=== PATIENT | male | born 1995 ===

== ENCOUNTER 2018-06-11 10:05 | Observation (INO) | payer BC, OTHER ==
[2018-06-11] MEDS ORDERED: Ketorolac 30 MG/ML SDV IVPUSH ONE (10:49)
[2018-06-11] MEDS ORDERED: Sodium Chloride 0.9% 1,000 ML IV ONE (10:49)
[2018-06-11] MEDS ORDERED: Ondansetron 4 MG/2 ML SDV IVPUSH ONE (10:49)
--- NOTE | 2018-06-11 10:58 | EDM.PDOC ---
ED HPI GENERAL MEDICAL PROBLEM - General Chief Complaint: Abdominal Pain Stated Complaint: ABD PAIN Time Seen by Provider: 06/11/18 10:52 Source of Information: Reports: Patient History Limitations: Reports: No Limitations - History of Present Illness INITIAL COMMENTS - FREE TEXT/NARRATIVE: HISTORY AND PHYSICAL: History of present illness: Patient is a 23-year-old male who presents to the ED today with left upper and right upper abdominal pain. Patient states that starting last night he started to feel the pain but went to bed not thinking twice about it. He states he woke up in the middle of the night with 7 out of 10 abdominal pain. He describes it as crampy and comes and goes. He states that currently it is a 9 out of 10. He states he's had a few episodes of vomiting and feels nauseous. He states he feels "bloated". He states he's been having issues with not having a bowel movement over the past week and feels as if he cannot have a bowel movement. He states he has been able to pass gas. He denies any blood in the stool. He denies any difficulties urinating or burning with urination. Denies any testicular pain or swelling, shortness of breath or difficulties breathing, fever, chills, chest pain, palpitations, or older GI, , respiratory , or cardiovascular concerns. Patient does have a history of anxiety and depression but denies any other health history. He denies any surgeries. Review of systems: As per history of present illness and below otherwise all systems reviewed and negative. Past medical history: As per history of present illness and as reviewed below otherwise noncontributory. Surgical history: As per history of present illness and as reviewed below otherwise noncontributory. Social history: No reported history of drug or alcohol abuse. Family history: As per history of present illness and as reviewed below otherwise noncontributory. Physical exam: General: Patient sitting comfortably in no acute distress and nontoxic appearing. He did have one episode of emesis throughout the exam. HEENT: Atraumatic, normocephalic, pupils reactive, negative for conjunctival pallor or scleral icterus, mucous membranes moist, throat clear, neck supple, nontender, trachea midline. No meningeal signs. Lungs: Clear to auscultation, breath sounds equal bilaterally, chest nontender. Heart: S1S2, regular, negative for clicks, rubs, or overt murmur. Abdomen: Moderate pain to palpation of the right upper and left upper quadrants. Positive bowel sounds in all quadrants. Otherwise, soft, nondistended. Negative for masses or hepatosplenomegaly. Negative for costovertebral tenderness. No rigidity, rebound, guarding. Pelvis: Stable nontender. Genitourinary: Deferred. Rectal: Deferred. Extremities: Atraumatic, negative for cords or calf pain. Neurovascular unremarkable. Neuro: Awake, alert, oriented. Cranial nerves II through XII unremarkable. Cerebellum unremarkable. Motor and sensory unremarkable throughout. Exam nonfocal. Notes: Upon initial exam, patient does have moderate pain to palpation of the upper quadrants. We'll do lab work and imaging. Patient does have an elevated lipase and a slightly elevated white blood cell count. Upon second interview, patient does admit to excess alcohol drinking over the past month due to an increase in life circumstance. Patient did have an elevated white blood cell count and an elevated lipase. Abdominal CT shows fat stranding and free fluid surrounding the pancreas consistent with pancreatitis. Bili was within normal limits. Dr. Georges was consulted on this patient. Patient will be admitted for observation. Diagnostics: CBC, CMP, UA, lipase, abdominal pelvic CT, hpylori Therapeutics: Saline, Zofran, Toradol, Morphine Impression: Pancreatitis Plan: Admit to observation Definitive disposition and diagnosis as appropriate pending reevaluation and review of above. Abdominal Pain Score (Numeric/FACES): 7 - Related Data Allergies Allergy/AdvReac Type Severity Reaction Status Date / Time No Known Allergies Allergy Verified 06/11/18 10:32 Home Meds: Home Meds . [No Known Home Meds] 06/11/18 [History] Past Medical History HEENT History: Reports: None Cardiovascular History: Reports: None Respiratory History: Reports: None Gastrointestinal History: Reports: None Genitourinary History: Reports: None Musculoskeletal History: Reports: None Neurological History: Reports: None Psychiatric History: Reports: Depression Endocrine/Metabolic History: Reports: None Hematologic History: Reports: None Immunologic History: Reports: None Oncologic (Cancer) History: Reports: None Dermatologic History: Reports: None - Infectious Disease History Infectious Disease History: Reports: Chicken Pox - Past Surgical History Head Surgeries/Procedures: Reports: None Social & Family History - Family History Family Medical History: Noncontributory - Tobacco Use Smoking Status *Q: Never Smoker - Caffeine Use Caffeine Use: Reports: Soda - Recreational Drug Use Recreational Drug Use: No ED ROS GENERAL - Review of Systems Review Of Systems: ROS reveals no pertinent complaints other than HPI. ED EXAM, GI/ABD - Physical Exam Exam: See Below (See dictation) Course - Vital Signs Last Recorded V/S: Last Vital Signs Temp 97.4 F 06/11/18 10:32 Pulse 81 06/11/18 13:00 Resp 18 06/11/18 13:00 BP 119/66 06/11/18 13:00 Pulse Ox 97 06/11/18 13:00 - Orders/Labs/Meds Orders: Active Orders 24 hr Category Date Time Status Admission Status [Patient Status] [ADT] Stat ADT 06/11/18 14:12 Active Labs: Laboratory Tests 06/11/18 06/11/18 06/11/18 Range/Units 11:10 11:10 11:10 WBC 14.89 H (4.0-11.0) K/uL RBC 4.56 (4.50-5.90) M/uL Hgb 15.8 (13.0-17.0) g/dL Hct 44.0 (38.0-50.0) % MCV 96.5 (80.0-98.0) fL MCH 34.6 H (27.0-32.0) pg MCHC 35.9 (31.0-37.0) g/dL RDW Std Deviation 46.9 (28.0-62.0) fl RDW Coeff of Shu 14 (11.0-15.0) % Plt Count 205 (150-400) K/uL MPV 9.80 (7.40-12.00) fL Neut % (Auto) 87.6 H (48.0-80.0) % Lymph % (Auto) 7.3 L (16.0-40.0) % [place] % (Auto) 5.0 (0.0-15.0) % Eos % (Auto) 0.0 (0.0-7.0) % Baso % (Auto) 0.1 (0.0-1.5) % Neut # (Auto) 13.1 H (1.4-5.7) K/uL Lymph # (Auto) 1.1 (0.6-2.4) K/uL [place] # (Auto) 0.7 (0.0-0.8) K/uL Eos # (Auto) 0.0 (0.0-0.7) K/uL Baso # (Auto) 0.0 (0.0-0.1) K/uL Nucleated RBC % 0.0 /100WBC Nucleated RBCs # 0 K/uL Sodium 137 (136-148) mmol/L Potassium 3.4 L (3.5-5.1) mmol/L Chloride 99 (98-107) mmol/L Carbon Dioxide 25.0 (21.0-32.0) mmol/L BUN 9 (7.0-18.0) mg/dL Creatinine 1.1 (0.8-1.3) mg/dL Est Cr Clr Drug Dosing 85.96 mL/min Estimated GFR (MDRD) > 60.0 ml/min Glucose 142 H (74-106) mg/dL Calcium 8.8 (8.5-10.1) mg/dL Total Bilirubin 0.7 (0.2-1.0) mg/dL AST 109 H (15-37) IU/L ALT 48 (14-63) IU/L Alkaline Phosphatase 105 (46-116) U/L Total Protein 8.3 H (6.4-8.2) g/dL Albumin 3.6 (3.4-5.0) g/dL Globulin 4.7 H (2.6-4.0) g/dL Albumin/Globulin Ratio 0.8 L (0.9-1.6) Lipase 2640 H (73-393) U/L Urine Color Urine Appearance Urine pH (5.0-8.0) Ur Specific [place] (1.001-1.035) Urine Protein (NEGATIVE) mg/dL Urine Glucose (UA) (NEGATIVE) mg/dL Urine Ketones (NEGATIVE) mg/dL Urine Occult Blood (NEGATIVE) Urine Nitrite (NEGATIVE) Urine Bilirubin (NEGATIVE) Urine Urobilinogen (<2.0) EU/dL Ur Leukocyte Esterase (NEGATIVE) Urine RBC (0-2/HPF) Urine WBC (0-5/HPF) Ur Epithelial Cells (NONE-FEW) Urine Bacteria (NEGATIVE) Urine Mucus (NONE-MOD) H. pylori IgG Antibody NEGATIVE (NEG) 06/11/18 Range/Units 11:49 WBC (4.0-11.0) K/uL RBC (4.50-5.90) M/uL Hgb (13.0-17.0) g/dL Hct (38.0-50.0) % MCV (80.0-98.0) fL MCH (27.0-32.0) pg MCHC (31.0-37.0) g/dL RDW Std Deviation (28.0-62.0) fl RDW Coeff of Shu (11.0-15.0) % Plt Count (150-400) K/uL MPV (7.40-12.00) fL Neut % (Auto) (48.0-80.0) % Lymph % (Auto) (16.0-40.0) % [place] % (Auto) (0.0-15.0) % Eos % (Auto) (0.0-7.0) % Baso % (Auto) (0.0-1.5) % Neut # (Auto) (1.4-5.7) K/uL Lymph # (Auto) (0.6-2.4) K/uL [place] # (Auto) (0.0-0.8) K/uL Eos # (Auto) (0.0-0.7) K/uL Baso # (Auto) (0.0-0.1) K/uL Nucleated RBC % /100WBC Nucleated RBCs # K/uL Sodium (136-148) mmol/L Potassium (3.5-5.1) mmol/L Chloride (98-107) mmol/L Carbon Dioxide (21.0-32.0) mmol/L BUN (7.0-18.0) mg/dL Creatinine (0.8-1.3) mg/dL Est Cr Clr Drug Dosing mL/min Estimated GFR (MDRD) ml/min Glucose (74-106) mg/dL Calcium (8.5-10.1) mg/dL Total Bilirubin (0.2-1.0) mg/dL AST (15-37) IU/L ALT (14-63) IU/L Alkaline Phosphatase (46-116) U/L Total Protein (6.4-8.2) g/dL Albumin (3.4-5.0) g/dL Globulin (2.6-4.0) g/dL Albumin/Globulin Ratio (0.9-1.6) Lipase (73-393) U/L Urine Color YELLOW Urine Appearance CLEAR Urine pH 6.0 (5.0-8.0) Ur Specific [place] >= 1.030 (1.001-1.035) Urine Protein TRACE H (NEGATIVE) mg/dL Urine Glucose (UA) NEGATIVE (NEGATIVE) mg/dL Urine Ketones NEGATIVE (NEGATIVE) mg/dL Urine Occult Blood TRACE-INTACT H (NEGATIVE) Urine Nitrite NEGATIVE (NEGATIVE) Urine Bilirubin NEGATIVE (NEGATIVE) Urine Urobilinogen 0.2 (<2.0) EU/dL Ur Leukocyte Esterase NEGATIVE (NEGATIVE) Urine RBC 0-2 (0-2/HPF) Urine WBC 0-2 (0-5/HPF) Ur Epithelial Cells OCCASIONAL (NONE-FEW) Urine Bacteria FEW (NEGATIVE) Urine Mucus LIGHT (NONE-MOD) H. pylori IgG Antibody (NEG) Meds: Medications Discontinued Medications Generic Name Dose Route Start Last Admin Trade Name Freq PRN Reason Stop Dose Admin Sodium Chloride 1,000 mls @ 999 mls/hr 06/11/18 10:49 06/11/18 11:20 Normal Saline IV 06/11/18 11:49 999 mls/hr STAT ONE Administration Ketorolac Tromethamine 30 mg 06/11/18 10:49 06/11/18 11:21 Toradol IVPUSH 06/11/18 10:50 30 mg ONETIME ONE Administration Morphine Sulfate 2 mg 06/11/18 13:22 06/11/18 13:27 Morphine IVPUSH 06/11/18 13:23 2 mg ONETIME ONE Administration Ondansetron HCl 4 mg 06/11/18 10:49 06/11/18 11:22 Zofran IVPUSH 06/11/18 10:50 4 mg ONETIME ONE Administration Departure - Departure Time of Disposition: 14:25 Disposition: Refer to Observation Clinical Impression: Pancreatitis Qualifiers: Chronicity: acute Pancreatitis type: unspecified pancreatitis type Acute pancreatitis complication: unspecified Qualified Code(s): K85.90 - Acute pancreatitis without necrosis or infection, unspecified - Discharge Information Referrals: PCP,None [Primary Care Provider] - Forms: ED Department Discharge - My Orders Last 24 Hours: My Active Orders 06/11/18 14:12 Admission Status [Patient Status] [ADT] Stat - Assessment/Plan Last 24 Hours: My Active Orders 06/11/18 14:12 Admission Status [Patient Status] [ADT] Stat
[2018-06-11 11:41] LABS: CHLORIDE,CL 99 mmol/L (98-107); SODIUM,NA 137 mmol/L (136-148)
[2018-06-11] MEDS ORDERED: Morphine 2 MG/ML Syringe IVPUSH ONE (13:22)
--- NOTE | 2018-06-11 13:54 | CT ---
Indication: Abdominal pain. Nausea. Vomiting. Technique: Multiple contiguous axial images were obtained from the lung bases through the symphysis pubis after the intravenous administration of 100 milliliters [id number]-[id number]. Please note that all CT scans at this facility use dose modulation, iterative reconstruction, and/or weight-based dosing when appropriate to reduce radiation dose to as low as reasonably achievable. Comparison: None Findings: The lung bases are clear. No infiltrate, pleural effusion, or pneumothorax is identified. Heart is normal in size. No pericardial effusion is identified. Diffuse fatty infiltration of the liver is identified. The gallbladder, spleen, adrenals, and kidneys are normal. No hydronephrosis is identified. Fat stranding and fluid is identified surrounding the pancreas. This is most consistent with pancreatitis. In the pelvis, the urinary bladder is normal. The prostate gland is normal. The small and large bowel are normal in caliber. The appendix is seen is normal in caliber. No free air is identified within the abdomen or pelvis. The aorta is normal in caliber. No lytic or blastic lesions of the spine are seen. Impression: Fat stranding and free fluid identified surrounding the pancreas. This is most consistent with pancreatitis. Diffuse fatty infiltration of the liver. Please note that all CT scans at this facility use dose modulation, iterative reconstruction, and/or weight-based dosing when appropriate to reduce radiation dose to as low as reasonably achievable. Dictated by Robyn Macias MD @ Jun 11 2018 1:49PM Signed by Dr. Robyn Macias @ Jun 11 2018 1:53PM
[2018-06-11] MEDS ORDERED: Iopamidol 755 MG/ML 200 ML Multipack Bottle IVPUSH STA (15:56)
[2018-06-11] MEDS ORDERED: Ondansetron 4 MG/2 ML SDV IVPUSH PRN (16:04)
[2018-06-11] MEDS ORDERED: Temazepam 15 MG Cap PO PRN (16:04)
--- NOTE | 2018-06-11 16:12 | PCM.HP ---
H&P History of Present Illness - General Date of Service: 06/11/18 Admit Problem/Dx: Admission Diagnosis/Problem Admission Diagnosis/Problem Pancreatitis Source of Information: Patient History Limitations: Reports: No Limitations - History of Present Illness Initial Comments - Free Text/Narative: The patient is an otherwise healthy 23-year-old gentleman who is presented to the emergency department with epigastric to left upper quadrant abdominal pain. The patient has described the pain as cramping and sharp and stabbing. It does not radiate. The patient's pain has been improved with the use of medications. After interview the patient says that he has been drinking a lot and admits that this is been secondary to father's hospitalization and other family stress. He is identified and admitted that this is a problem. The patient also relates that he's had one to 2 episodes of vomiting. He does not feel nauseous presently. The patient doesn't take any medications chronically. Onset of Symptoms: Reports: Gradual Duration of Symptoms: Reports: Day(s): Location: Reports: Abdomen Quality: Reports: Stabbing, Throbbing Severity: Moderate Improves with: Reports: Medication Worsens with: Reports: Eating Associated Symptoms: Reports: Nausea/Vomiting Abdominal Pain Score (Numeric/FACES): 7 - Related Data Allergies/Adverse Reactions: Allergies Allergy/AdvReac Type Severity Reaction Status Date / Time No Known Allergies Allergy Verified 06/11/18 10:32 Home Medications: Home Meds . [No Known Home Meds] 06/11/18 [History] Past Medical History HEENT History: Reports: None Cardiovascular History: Reports: None Respiratory History: Reports: None Gastrointestinal History: Reports: None Genitourinary History: Reports: None Musculoskeletal History: Reports: None Neurological History: Reports: None Psychiatric History: Reports: Depression Endocrine/Metabolic History: Reports: None Hematologic History: Reports: None Immunologic History: Reports: None Oncologic (Cancer) History: Reports: None Dermatologic History: Reports: None - Infectious Disease History Infectious Disease History: Reports: Chicken Pox - Past Surgical History Head Surgeries/Procedures: Reports: None Social & Family History - Family History Family Medical History: Noncontributory - Tobacco Use Smoking Status *Q: Never Smoker Second Hand Smoke Exposure: No - Caffeine Use Caffeine Use: Reports: Soda - Alcohol Use Alcohol Use History: Yes Days Per Week of Alcohol Use: 7 Number of Drinks Per Day: 3 Total Drinks Per Week: 21 Date of Last Drink: 06/10/18 Time of Last Drink: 17:00 - Recreational Drug Use Recreational Drug Use: No H&P Review of Systems - Review of Systems: Review Of Systems: See Below General: Reports: Decreased Appetite HEENT: Reports: No Symptoms Pulmonary: Reports: No Symptoms Cardiovascular: Reports: No Symptoms Gastrointestinal: Reports: Abdominal Pain, Nausea Genitourinary: Reports: No Symptoms Musculoskeletal: Reports: No Symptoms Skin: Reports: No Symptoms Psychiatric: Reports: No Symptoms Neurological: Reports: No Symptoms Hematologic/Lymphatic: Reports: No Symptoms Immunologic: Reports: No Symptoms Exam - Exam Exam: See Below - Vital Signs Vital Signs: Last Vital Signs Temp 36.1 C 06/11/18 14:38 Pulse 88 06/11/18 14:50 Resp 18 06/11/18 14:50 BP 119/73 06/11/18 14:50 Pulse Ox 97 06/11/18 14:50 Weight: 79.968 kg - Exam Quality Assessment: No: Supplemental Oxygen General: Alert, Oriented, Cooperative, Mild Distress HEENT: Conjunctiva Clear, EACs Clear, Mucosa Moist & [place], Nares Patent, PERRLA Neck: Supple, Trachea Midline Lungs: Clear to Auscultation, Normal Respiratory Effort Cardiovascular: Regular Rate, Regular Rhythm GI/Abdominal Exam: Soft, No Distention, No Mass, Tender (Epigastric). No: Guarding, Rigid (Male) Exam: Deferred Rectal (Males) Exam: Deferred Back Exam: Normal Inspection, Full Range of Motion Extremities: Normal Inspection, Normal Range of Motion, No Pedal Edema Skin: Warm, Dry, Intact Neurological: Cranial Nerves Intact Neuro Extensive - Mental Status: Alert, Oriented x3 Neuro Extensive - Motor, Sensory, Reflexes: CN II-XII Intact, Normal Gait Psychiatric: Alert, Normal Affect, Normal Mood - Patient Data Lab Results Last 24 hrs: Laboratory Results - last 24 hr 06/11/18 06/11/18 06/11/18 Range/Units 11:10 11:10 11:10 WBC 14.89 H (4.0-11.0) K/uL RBC 4.56 (4.50-5.90) M/uL Hgb 15.8 (13.0-17.0) g/dL Hct 44.0 (38.0-50.0) % MCV 96.5 (80.0-98.0) fL MCH 34.6 H (27.0-32.0) pg MCHC 35.9 (31.0-37.0) g/dL RDW Std Deviation 46.9 (28.0-62.0) fl RDW Coeff of Shu 14 (11.0-15.0) % Plt Count 205 (150-400) K/uL MPV 9.80 (7.40-12.00) fL Neut % (Auto) 87.6 H (48.0-80.0) % Lymph % (Auto) 7.3 L (16.0-40.0) % [place] % (Auto) 5.0 (0.0-15.0) % Eos % (Auto) 0.0 (0.0-7.0) % Baso % (Auto) 0.1 (0.0-1.5) % Neut # (Auto) 13.1 H (1.4-5.7) K/uL Lymph # (Auto) 1.1 (0.6-2.4) K/uL [place] # (Auto) 0.7 (0.0-0.8) K/uL Eos # (Auto) 0.0 (0.0-0.7) K/uL Baso # (Auto) 0.0 (0.0-0.1) K/uL Nucleated RBC % 0.0 /100WBC Nucleated RBCs # 0 K/uL Sodium 137 (136-148) mmol/L Potassium 3.4 L (3.5-5.1) mmol/L Chloride 99 (98-107) mmol/L Carbon Dioxide 25.0 (21.0-32.0) mmol/L BUN 9 (7.0-18.0) mg/dL Creatinine 1.1 (0.8-1.3) mg/dL Est Cr Clr Drug Dosing 85.96 mL/min Estimated GFR (MDRD) > 60.0 ml/min Glucose 142 H (74-106) mg/dL Calcium 8.8 (8.5-10.1) mg/dL Total Bilirubin 0.7 (0.2-1.0) mg/dL AST 109 H (15-37) IU/L ALT 48 (14-63) IU/L Alkaline Phosphatase 105 (46-116) U/L Total Protein 8.3 H (6.4-8.2) g/dL Albumin 3.6 (3.4-5.0) g/dL Globulin 4.7 H (2.6-4.0) g/dL Albumin/Globulin Ratio 0.8 L (0.9-1.6) Lipase 2640 H (73-393) U/L Urine Color Urine Appearance Urine pH (5.0-8.0) Ur Specific [place] (1.001-1.035) Urine Protein (NEGATIVE) mg/dL Urine Glucose (UA) (NEGATIVE) mg/dL Urine Ketones (NEGATIVE) mg/dL Urine Occult Blood (NEGATIVE) Urine Nitrite (NEGATIVE) Urine Bilirubin (NEGATIVE) Urine Urobilinogen (<2.0) EU/dL Ur Leukocyte Esterase (NEGATIVE) Urine RBC (0-2/HPF) Urine WBC (0-5/HPF) Ur Epithelial Cells (NONE-FEW) Urine Bacteria (NEGATIVE) Urine Mucus (NONE-MOD) H. pylori IgG Antibody NEGATIVE (NEG) 06/11/18 Range/Units 11:49 WBC (4.0-11.0) K/uL RBC (4.50-5.90) M/uL Hgb (13.0-17.0) g/dL Hct (38.0-50.0) % MCV (80.0-98.0) fL MCH (27.0-32.0) pg MCHC (31.0-37.0) g/dL RDW Std Deviation (28.0-62.0) fl RDW Coeff of Shu (11.0-15.0) % Plt Count (150-400) K/uL MPV (7.40-12.00) fL Neut % (Auto) (48.0-80.0) % Lymph % (Auto) (16.0-40.0) % [place] % (Auto) (0.0-15.0) % Eos % (Auto) (0.0-7.0) % Baso % (Auto) (0.0-1.5) % Neut # (Auto) (1.4-5.7) K/uL Lymph # (Auto) (0.6-2.4) K/uL [place] # (Auto) (0.0-0.8) K/uL Eos # (Auto) (0.0-0.7) K/uL Baso # (Auto) (0.0-0.1) K/uL Nucleated RBC % /100WBC Nucleated RBCs # K/uL Sodium (136-148) mmol/L Potassium (3.5-5.1) mmol/L Chloride (98-107) mmol/L Carbon Dioxide (21.0-32.0) mmol/L BUN (7.0-18.0) mg/dL Creatinine (0.8-1.3) mg/dL Est Cr Clr Drug Dosing mL/min Estimated GFR (MDRD) ml/min Glucose (74-106) mg/dL Calcium (8.5-10.1) mg/dL Total Bilirubin (0.2-1.0) mg/dL AST (15-37) IU/L ALT (14-63) IU/L Alkaline Phosphatase (46-116) U/L Total Protein (6.4-8.2) g/dL Albumin (3.4-5.0) g/dL Globulin (2.6-4.0) g/dL Albumin/Globulin Ratio (0.9-1.6) Lipase (73-393) U/L Urine Color YELLOW Urine Appearance CLEAR Urine pH 6.0 (5.0-8.0) Ur Specific [place] >= 1.030 (1.001-1.035) Urine Protein TRACE H (NEGATIVE) mg/dL Urine Glucose (UA) NEGATIVE (NEGATIVE) mg/dL Urine Ketones NEGATIVE (NEGATIVE) mg/dL Urine Occult Blood TRACE-INTACT H (NEGATIVE) Urine Nitrite NEGATIVE (NEGATIVE) Urine Bilirubin NEGATIVE (NEGATIVE) Urine Urobilinogen 0.2 (<2.0) EU/dL Ur Leukocyte Esterase NEGATIVE (NEGATIVE) Urine RBC 0-2 (0-2/HPF) Urine WBC 0-2 (0-5/HPF) Ur Epithelial Cells OCCASIONAL (NONE-FEW) Urine Bacteria FEW (NEGATIVE) Urine Mucus LIGHT (NONE-MOD) H. pylori IgG Antibody (NEG) Result Diagrams: 06/11/18 11:10 06/11/18 11:10 - Problem List (1) Pancreatitis SNOMED Code(s): 27515520 ICD Code: K85.90 - ACUTE PANCREATITIS WITHOUT NECROSIS OR INFECTION, UNSP Status: Acute Priority: High Current Visit: Yes Qualifiers: Chronicity: acute Pancreatitis type: alcohol induced Acute pancreatitis complication: unspecified Qualified Code(s): K85.20 - Alcohol induced acute pancreatitis without necrosis or infection (2) Abdominal pain SNOMED Code(s): 26296373 ICD Code: R10.9 - UNSPECIFIED ABDOMINAL PAIN Status: Acute Priority: High Current Visit: Yes Qualifiers: Abdominal location: epigastric Qualified Code(s): R10.13 - Epigastric pain (3) Alcohol abuse SNOMED Code(s): 88500078 ICD Code: F10.10 - ALCOHOL ABUSE, UNCOMPLICATED Status: Chronic Priority : High Current Visit: Yes Problem List Initiated/Reviewed/Updated: Yes Orders Last 24hrs: Active Orders 24 hr Category Date Time Status Admission Status [Patient Status] [ADT] Stat ADT 06/11/18 14:12 Active Oxygen Therapy [RC] PRN Care 06/11/18 16:04 Active Up ad [place] [RC] ASDIRECTED Care 06/11/18 16:04 Active VTE/DVT Education [RC] PER UNIT ROUTINE Care 06/11/18 16:04 Active Vital Signs [RC] Q4H Care 06/11/18 16:04 Active Nothing per Oral Now Diet [DIET] Diet 06/12/18 Breakfast Active BASIC METABOLIC PANEL,BMP [CHEM] AM Lab 06/12/18 05:11 Ordered CBC WITH AUTO DIFF [HEME] AM Lab 06/12/18 05:11 Ordered LACTATE DEHYDROGENASE,LDH [CHEM] Routine Lab 06/11/18 11:10 Received Enoxaparin [Lovenox] Med 06/11/18 16:15 Ordered 30 mg SUBCUT Q24H LORazepam [Ativan] Med 06/11/18 22:00 Ordered 0.5 mg PO TID Morphine Med 06/11/18 16:04 Ordered 2 mg IVPUSH Q2H PRN Ondansetron [Zofran] Med 06/11/18 16:04 Ordered 4 mg IVPUSH Q6H PRN Sodium Chloride 0.9% [Normal Saline] 1,000 ml Med 06/11/18 16:15 Ordered IV ASDIRECTED Temazepam [Restoril] Med 06/11/18 16:04 Ordered 15 mg PO BEDTIME PRN Resuscitation Status Routine Resus Stat 06/11/18 16:04 Ordered Medication Orders Enoxaparin Sodium (Lovenox) 30 mg SUBCUT Q24H NABIL Sodium Chloride (Normal Saline) 1,000 mls @ 125 mls/hr IV ASDIRECTED NABIL Lorazepam (Ativan) 0.5 mg PO TID NABIL Morphine Sulfate (Morphine) 2 mg IVPUSH Q2H PRN PRN Reason: Pain (severe 7-10) Stop: 06/12/18 16:05 Ondansetron HCl (Zofran) 4 mg IVPUSH Q6H PRN PRN Reason: Nausea/Vomiting Temazepam (Restoril) 15 mg PO BEDTIME PRN PRN Reason: Sleep Assessment/Plan Comment:: The patient is an otherwise healthy 23-year-old gentleman who will be admitted to observation for now. This is secondary to his pancreatitis. His lipase was noted to be around 2600 units per liter. The patient will be kept nothing by mouth. He can have any strips. The patient will also have IV of normal saline at 125 mL per hour. The patient's pain will be controlled with the use of IV narcotic pain medications. I had a long explanation with the patient regarding alcohol-induced pancreatitis and the patient does have a good insight as to the nature of his alcohol use. Patient should be appropriate for discharge in 1-2 days. Will follow with repeat laboratory studies in the morning. He has been encouraged to ambulate. The patient will also have DVT prophylaxis with the use of Lovenox.
[2018-06-11] MEDS: Morphine 2 MG/ML Syringe IVPUSH PRN ×3 (16:40→21:16)
[2018-06-11] MEDS: Sodium Chloride 0.9% 1,000 ML IV SCH (17:18)
[2018-06-11] MEDS: Enoxaparin 30 MG/0.3 ML Syringe SUBCUT SCH (17:30)
[2018-06-11] MEDS: LORazepam 0.5 MG Tab PO SCH (21:13)
[2018-06-12 09:15] LABS: CHLORIDE,CL 106 mmol/L (98-107); SODIUM,NA 142 mmol/L (136-148)
[2018-06-12] MEDS: LORazepam 0.5 MG Tab PO SCH (09:22)
--- NOTE | 2018-06-12 09:39 | PCM.PN ---
- General Info Date of Service: 06/12/18 Admission Dx/Problem (Free Text): Pancreatitis Subjective Update: The patient is an otherwise healthy 23-year-old gentleman who is admitted yesterday secondary to alcohol-induced pancreatitis. The patient has been kept nothing by mouth. His pain is better controlled with the use of IV narcotics. He also has been fluid resuscitated with normal saline. Patient says today that his pain is much improved. Patient says that he is feeling hungry. He has no other complaints. Functional Status: Reports: Pain Controlled - Review of Systems General: Reports: No Symptoms HEENT: Reports: No Symptoms Pulmonary: Reports: No Symptoms Cardiovascular: Reports: No Symptoms Gastrointestinal: Reports: Abdominal Pain (Lessened today) Genitourinary: Reports: No Symptoms Musculoskeletal: Reports: No Symptoms Skin: Reports: No Symptoms Neurological: Reports: No Symptoms Psychiatric: Reports: No Symptoms - Patient Data Vitals - Most Recent: Last Vital Signs Temp 36.6 C 06/11/18 19:35 Pulse 89 06/11/18 19:35 Resp 17 06/11/18 19:35 BP 123/86 06/11/18 19:35 Pulse Ox 98 06/11/18 19:35 Weight - Most Recent: 79.968 kg Lab Results Last 24 Hours: Laboratory Results - last 24 hr 06/11/18 06/11/18 06/11/18 Range/Units 11:10 11:10 11:10 WBC 14.89 H (4.0-11.0) K/uL RBC 4.56 (4.50-5.90) M/uL Hgb 15.8 (13.0-17.0) g/dL Hct 44.0 (38.0-50.0) % MCV 96.5 (80.0-98.0) fL MCH 34.6 H (27.0-32.0) pg MCHC 35.9 (31.0-37.0) g/dL RDW Std Deviation 46.9 (28.0-62.0) fl RDW Coeff of Shu 14 (11.0-15.0) % Plt Count 205 (150-400) K/uL MPV 9.80 (7.40-12.00) fL Neut % (Auto) 87.6 H (48.0-80.0) % Lymph % (Auto) 7.3 L (16.0-40.0) % Mercer % (Auto) 5.0 (0.0-15.0) % Eos % (Auto) 0.0 (0.0-7.0) % Baso % (Auto) 0.1 (0.0-1.5) % Neut # (Auto) 13.1 H (1.4-5.7) K/uL Lymph # (Auto) 1.1 (0.6-2.4) K/uL Mercer # (Auto) 0.7 (0.0-0.8) K/uL Eos # (Auto) 0.0 (0.0-0.7) K/uL Baso # (Auto) 0.0 (0.0-0.1) K/uL Nucleated RBC % 0.0 /100WBC Nucleated RBCs # 0 K/uL Sodium 137 (136-148) mmol/L Potassium 3.4 L (3.5-5.1) mmol/L Chloride 99 (98-107) mmol/L Carbon Dioxide 25.0 (21.0-32.0) mmol/L BUN 9 (7.0-18.0) mg/dL Creatinine 1.1 (0.8-1.3) mg/dL Est Cr Clr Drug Dosing 85.96 mL/min Estimated GFR (MDRD) > 60.0 ml/min Glucose 142 H (74-106) mg/dL Calcium 8.8 (8.5-10.1) mg/dL Total Bilirubin 0.7 (0.2-1.0) mg/dL AST 109 H (15-37) IU/L ALT 48 (14-63) IU/L Alkaline Phosphatase 105 (46-116) U/L Lactate Dehydrogenase (81-234) U/L Total Protein 8.3 H (6.4-8.2) g/dL Albumin 3.6 (3.4-5.0) g/dL Globulin 4.7 H (2.6-4.0) g/dL Albumin/Globulin Ratio 0.8 L (0.9-1.6) Lipase 2640 H (73-393) U/L Urine Color Urine Appearance Urine pH (5.0-8.0) Ur Specific [place] (1.001-1.035) Urine Protein (NEGATIVE) mg/dL Urine Glucose (UA) (NEGATIVE) mg/dL Urine Ketones (NEGATIVE) mg/dL Urine Occult Blood (NEGATIVE) Urine Nitrite (NEGATIVE) Urine Bilirubin (NEGATIVE) Urine Urobilinogen (<2.0) EU/dL Ur Leukocyte Esterase (NEGATIVE) Urine RBC (0-2/HPF) Urine WBC (0-5/HPF) Ur Epithelial Cells (NONE-FEW) Urine Bacteria (NEGATIVE) Urine Mucus (NONE-MOD) H. pylori IgG Antibody NEGATIVE (NEG) 06/11/18 06/11/18 Range/Units 11:10 11:49 WBC (4.0-11.0) K/uL RBC (4.50-5.90) M/uL Hgb (13.0-17.0) g/dL Hct (38.0-50.0) % MCV (80.0-98.0) fL MCH (27.0-32.0) pg MCHC (31.0-37.0) g/dL RDW Std Deviation (28.0-62.0) fl RDW Coeff of Shu (11.0-15.0) % Plt Count (150-400) K/uL MPV (7.40-12.00) fL Neut % (Auto) (48.0-80.0) % Lymph % (Auto) (16.0-40.0) % Mercer % (Auto) (0.0-15.0) % Eos % (Auto) (0.0-7.0) % Baso % (Auto) (0.0-1.5) % Neut # (Auto) (1.4-5.7) K/uL Lymph # (Auto) (0.6-2.4) K/uL Mercer # (Auto) (0.0-0.8) K/uL Eos # (Auto) (0.0-0.7) K/uL Baso # (Auto) (0.0-0.1) K/uL Nucleated RBC % /100WBC Nucleated RBCs # K/uL Sodium (136-148) mmol/L Potassium (3.5-5.1) mmol/L Chloride (98-107) mmol/L Carbon Dioxide (21.0-32.0) mmol/L BUN (7.0-18.0) mg/dL Creatinine (0.8-1.3) mg/dL Est Cr Clr Drug Dosing mL/min Estimated GFR (MDRD) ml/min Glucose (74-106) mg/dL Calcium (8.5-10.1) mg/dL Total Bilirubin (0.2-1.0) mg/dL AST (15-37) IU/L ALT (14-63) IU/L Alkaline Phosphatase (46-116) U/L Lactate Dehydrogenase 283 H (81-234) U/L Total Protein (6.4-8.2) g/dL Albumin (3.4-5.0) g/dL Globulin (2.6-4.0) g/dL Albumin/Globulin Ratio (0.9-1.6) Lipase (73-393) U/L Urine Color YELLOW Urine Appearance CLEAR Urine pH 6.0 (5.0-8.0) Ur Specific [place] >= 1.030 (1.001-1.035) Urine Protein TRACE H (NEGATIVE) mg/dL Urine Glucose (UA) NEGATIVE (NEGATIVE) mg/dL Urine Ketones NEGATIVE (NEGATIVE) mg/dL Urine Occult Blood TRACE-INTACT H (NEGATIVE) Urine Nitrite NEGATIVE (NEGATIVE) Urine Bilirubin NEGATIVE (NEGATIVE) Urine Urobilinogen 0.2 (<2.0) EU/dL Ur Leukocyte Esterase NEGATIVE (NEGATIVE) Urine RBC 0-2 (0-2/HPF) Urine WBC 0-2 (0-5/HPF) Ur Epithelial Cells OCCASIONAL (NONE-FEW) Urine Bacteria FEW (NEGATIVE) Urine Mucus LIGHT (NONE-MOD) H. pylori IgG Antibody (NEG) Med Orders - Current: Current Medications Enoxaparin Sodium (Lovenox) 30 mg SUBCUT Q24H [facility] Last Admin: 06/11/18 17:30 Dose: 30 mg Sodium Chloride (Normal Saline) 1,000 mls @ 125 mls/hr IV ASDIRECTED [facility] Last Admin: 06/11/18 17:18 Dose: 125 mls/hr Lorazepam (Ativan) 0.5 mg PO TID [facility] Last Admin: 06/12/18 09:22 Dose: Not Given Morphine Sulfate (Morphine) 2 mg IVPUSH Q2H PRN PRN Reason: Pain (severe 7-10) Stop: 06/12/18 16:05 Last Admin: 06/11/18 21:16 Dose: 2 mg Ondansetron HCl (Zofran) 4 mg IVPUSH Q6H PRN PRN Reason: Nausea/Vomiting Temazepam (Restoril) 15 mg PO BEDTIME PRN PRN Reason: Sleep Discontinued Medications Sodium Chloride (Normal Saline) 1,000 mls @ 999 mls/hr IV STAT ONE Stop: 06/11/18 11:49 Last Admin: 06/11/18 11:20 Dose: 999 mls/hr Influenza Virus Vaccine (Pharmacy To Dose - Influenza Vaccine) 1 each IM ONETIME ONE Stop: 06/11/18 15:36 Influenza Virus Vaccine (Fluzone Quad [id number] Syringe) 60 mcg IM .ONCE ONE Stop: 06/11/18 15:46 Iopamidol (Isovue Multipack-370 (76%)) 100 ml IVPUSH ONETIME STA Stop: 06/11/18 15:57 Last Admin: 06/11/18 15:56 Dose: 100 ml Ketorolac Tromethamine (Toradol) 30 mg IVPUSH ONETIME ONE Stop: 06/11/18 10:50 Last Admin: 06/11/18 11:21 Dose: 30 mg Morphine Sulfate (Morphine) 2 mg IVPUSH ONETIME ONE Stop: 06/11/18 13:23 Last Admin: 06/11/18 13:27 Dose: 2 mg Ondansetron HCl (Zofran) 4 mg IVPUSH ONETIME ONE Stop: 06/11/18 10:50 Last Admin: 06/11/18 11:22 Dose: 4 mg - Exam Quality Assessment: No: Supplemental Oxygen General: Alert, Oriented, Cooperative, No Acute Distress HEENT: Pupils Equal, Pupils Reactive, EOMI Neck: Supple, Trachea Midline Lungs: Clear to Auscultation, Normal Respiratory Effort Cardiovascular: Regular Rate, Regular Rhythm GI/Abdominal Exam: Normal Bowel Sounds, Soft, Non-Tender, No Distention (Male) Exam: Deferred Back Exam: Normal Inspection, Full Range of Motion Extremities: Normal Inspection, Normal Range of Motion, No Pedal Edema Skin: Warm, Dry, Intact Neurological: No New Focal Deficit, Normal Gait Psy/Mental Status: Alert, Normal Affect, Normal Mood - Problem List & Annotations (1) Pancreatitis SNOMED Code(s): 58749360 Code(s): K85.90 - ACUTE PANCREATITIS WITHOUT NECROSIS OR INFECTION, UNSP Status: Acute Priority: High Current Visit: Yes Qualifiers: Chronicity: acute Pancreatitis type: alcohol induced Acute pancreatitis complication: unspecified Qualified Code(s): K85.20 - Alcohol induced acute pancreatitis without necrosis or infection Annotation/Comment:: Improving (2) Abdominal pain SNOMED Code(s): 17810881 Code(s): R10.9 - UNSPECIFIED ABDOMINAL PAIN Status: Acute Priority: High Current Visit: Yes Qualifiers: Abdominal location: epigastric Qualified Code(s): R10.13 - Epigastric pain (3) Alcohol abuse SNOMED Code(s): 74412588 Code(s): F10.10 - ALCOHOL ABUSE, UNCOMPLICATED Status: Chronic Priority: High Current Visit: Yes - Problem List Review Problem List Initiated/Reviewed/Updated: Yes - My Orders Last 24 Hours: My Active Orders 06/11/18 16:04 Oxygen Therapy [RC] PRN Up ad [place] [RC] ASDIRECTED VTE/DVT Education [RC] PER UNIT ROUTINE Vital Signs [RC] Q4H Morphine 2 mg IVPUSH Q2H PRN Ondansetron [Zofran] 4 mg IVPUSH Q6H PRN Temazepam [Restoril] 15 mg PO BEDTIME PRN Resuscitation Status Routine 06/11/18 16:15 Enoxaparin [Lovenox] 30 mg SUBCUT Q24H Sodium Chloride 0.9% [Normal Saline] 1,000 ml IV ASDIRECTED 06/11/18 17:30 Communication Order [RC] PRN 06/11/18 22:00 LORazepam [Ativan] 0.5 mg PO TID 06/12/18 05:11 BASIC METABOLIC PANEL,BMP [CHEM] AM CBC WITH AUTO DIFF [HEME] AM 06/12/18 Breakfast Clear Liquid Diet [DIET] - Plan Plan:: The patient is an otherwise healthy 23-year-old gentleman who will be admitted to observation for now. This is secondary to his pancreatitis. His lipase was noted to be around 2600 units per liter. The patient will be kept nothing by mouth. He can have any strips. The patient will also have IV of normal saline at 125 mL per hour. The patient's pain will be controlled with the use of IV narcotic pain medications. I had a long explanation with the patient regarding alcohol-induced pancreatitis and the patient does have a good insight as to the nature of his alcohol use. Patient should be appropriate for discharge in 1-2 days. Will follow with repeat laboratory studies in the morning. He has been encouraged to ambulate. The patient will also have DVT prophylaxis with the use of Lovenox. The patient is a 23-year-old gentleman who is doing much better today. He has had no further episodes of nausea or vomiting. The patient was admitted secondary to pancreatitis. I've ordered a repeat of his lipase. The patient will also have his diet advanced to clear liquids as tolerated. We'll continue with his current pain control. The patient will be discharged once his pain has been adequately controlled and he is able to tolerate full diet. We'll also consider discharging after his pancreatic enzymes have trended towards normal. I 've encouraged the patient ambulation. DVT prophylaxis will continue.
[2018-06-12] MEDS: Sodium Chloride 0.9% 1,000 ML IV SCH ×2 (09:43→17:46)
[2018-06-12] MEDS: Morphine 2 MG/ML Syringe IVPUSH PRN (10:57)
[2018-06-12] MEDS ORDERED: LORazepam 0.5 MG Tab PO PRN (12:27)
[2018-06-12] MEDS: Enoxaparin 30 MG/0.3 ML Syringe SUBCUT SCH (16:20)
[2018-06-12] MEDS ORDERED: Morphine 2 MG/ML Syringe IVPUSH PRN (19:52)
[2018-06-13] MEDS: Sodium Chloride 0.9% 1,000 ML IV SCH (03:11)
[2018-06-13 06:33] LABS: CHLORIDE,CL 101 mmol/L (98-107); SODIUM,NA 135 mmol/L (136-148)
[2018-06-13] MEDS ORDERED: Pantoprazole 40 MG Tab.CR PO SCH (09:08)
--- NOTE | 2018-06-13 09:08 | PCM.DCSUM1 ---
<Dian Hill M - Last Filed: 06/13/18 09:39> Discharge Summary - Hospital Course Brief History: This otherwise healthy 23-year-old male presented to the emergency department with epigastric to left upper quadrant abdominal pain. The patient has described the pain as cramping, sharp and stabbing. It does not radiate. The patient's pain has been improved with the use of medications. After interview the patient says that he has been drinking a lot and admits that this is been secondary to father's hospitalization and other family stress. He is identified and admitted that this is a problem. The patient also relates that he's had one to 2 episodes of vomiting. He does not feel nauseous presently. The patient doesn't take any medications chronically. Diagnosis: Stroke: No - Discharge Data Discharge Date: 06/13/18 Discharge Disposition: Home, Self-Care 01 Condition: Good - Patient Instructions Diet: GI Soft/Low Residue/Low Fiber Activity: As Tolerated, Rest and Relax Today Driving: Do Not Drive (ok to drive tomorrow 3, once narcotics had worn off) Showering/Bathing: August Shower Notify Provider of: Fever, Increased Pain, Swelling and Redness, Drainage, Nausea and/or Vomiting - Discharge Plan *PRESCRIPTION DRUG MONITORING PROGRAM REVIEWED*: Not Applicable *COPY OF PRESCRIPTION DRUG MONITORING REPORT IN PATIENT JESSICA: Not Applicable Home Medications: Home Meds . [No Known Home Meds] 06/11/18 [History] Oxygen Therapy Mode: Room Air Patient Handouts: Alcohol Use Disorder, Abdominal Pain, Adult, Acute Pancreatitis, [id number] Referrals: [facility] [Outside] Shahzad Horan MD [Resident] - 06/24/18 2:00 pm Mara Shah [Ordering Only Provider] - - Discharge Summary/Plan Comment DC Time >30 min.: No Discharge Summary/Plan Comment: Discharge Diagnoses: Pancreatitis Alcohol abuse Adam was admitted and treated with IVF resuscitation and bowel rest along with analgesics for pain. Yesterday he was feeling better and hungry, his diet was advanced to soft which he tolerated well. he reports he is feeling better this morning. having some LUQ pain/rib pain after coughing a lot. He reports the pain he came in with is gone and he isn't nauseated. He is very eager to go home today. He reports he is done drinking. We will give him information on AA meetings in [place] as well as human services resource for outpatient treatment. He denies feeling shaky or anxious. He will be discharged home today , follow up with PCP in 1 week. He is to keep low fat diet, low fiber soft for next couple days then slowly advance which he verbalized understanding. He is to return to ED or clinic if concerns should arise. - General Info Date of Service: 06/13/18 Admission Dx/Problem (Free Text: Pancreatitis Subjective Update: Sitting up in chair. Reports having some L rib cage pain after coughing a lot overnight. No chest pain no sob. reports abdominal pain is gone. Tolerating diet well. Requesting discharge home today. Functional Status: Reports: Pain Controlled, Tolerating Diet, Ambulating, Urinating - Review of Systems General: Reports: No Symptoms. Denies: Fever, Weakness, Fatigue HEENT: Reports: No Symptoms. Denies: Headaches, Sore Throat, Visual Changes Pulmonary: Reports: Cough, Other (L lower rib cage, to palpation). Denies: Shortness of Breath, Pleuritic Chest Pain, Sputum Cardiovascular: Reports: No Symptoms. Denies: Chest Pain, Palpitations, Edema Gastrointestinal: Denies: Abdominal Pain, Nausea, Vomiting Genitourinary: Reports: No Symptoms. Denies: Dysuria, Frequency, Burning Musculoskeletal: Reports: No Symptoms. Denies: Neck Pain Skin: Reports: No Symptoms Neurological: Reports: No Symptoms Psychiatric: Reports: No Symptoms - Patient Data Vitals - Most Recent: Last Vital Signs Temp 98.4 F 06/13/18 07:58 Pulse 82 06/13/18 07:58 Resp 19 06/13/18 07:58 BP 121/89 06/13/18 07:58 Pulse Ox 94 L 06/13/18 07:58 Weight - Most Recent: 79.968 kg I&O - Last 24 hours: Intake & Output 06/12/18 06/13/18 06/13/18 22:59 06:59 14:59 Intake Total 1999 1979 Output Total 1050 400 Balance 950 1580 Lab Results - Last 24 hrs: Laboratory Results - last 24 hr 06/12/18 06/12/18 06/12/18 Range/Units 05:41 06:30 06:30 WBC 12.54 H (4.0-11.0) K/uL RBC 4.68 (4.50-5.90) M/uL Hgb 16.5 (13.0-17.0) g/dL Hct 46.5 (38.0-50.0) % MCV 99.4 H (80.0-98.0) fL MCH 35.3 H (27.0-32.0) pg MCHC 35.5 (31.0-37.0) g/dL RDW Std Deviation 50.5 (28.0-62.0) fl RDW Coeff of Shu 14 (11.0-15.0) % Plt Count 170 (150-400) K/uL MPV 10.40 (7.40-12.00) fL Neut % (Auto) 89.8 H (48.0-80.0) % Lymph % (Auto) 5.9 L (16.0-40.0) % [place] % (Auto) 4.2 (0.0-15.0) % Eos % (Auto) 0.0 (0.0-7.0) % Baso % (Auto) 0.1 (0.0-1.5) % Neut # (Auto) 11.3 H (1.4-5.7) K/uL Lymph # (Auto) 0.7 (0.6-2.4) K/uL [place] # (Auto) 0.5 (0.0-0.8) K/uL Eos # (Auto) 0.0 (0.0-0.7) K/uL Baso # (Auto) 0.0 (0.0-0.1) K/uL Nucleated RBC % 0.0 /100WBC Nucleated RBCs # 0 K/uL Sodium 142 (136-148) mmol/L Potassium 3.7 (3.5-5.1) mmol/L Chloride 106 (98-107) mmol/L Carbon Dioxide 23.5 (21.0-32.0) mmol/L BUN 11 (7.0-18.0) mg/dL Creatinine 1.1 (0.8-1.3) mg/dL Est Cr Clr Drug Dosing 85.96 mL/min Estimated GFR (MDRD) > 60.0 ml/min Glucose 143 H (74-106) mg/dL Calcium 8.3 L (8.5-10.1) mg/dL Total Bilirubin (0.2-1.0) mg/dL AST (15-37) IU/L ALT (14-63) IU/L Alkaline Phosphatase (46-116) U/L Total Protein (6.4-8.2) g/dL Albumin (3.4-5.0) g/dL Globulin (2.6-4.0) g/dL Albumin/Globulin Ratio (0.9-1.6) Lipase 2417 H (73-393) U/L 06/13/18 06/13/18 Range/Units 05:29 05:29 WBC 10.67 (4.0-11.0) K/uL RBC 4.09 L (4.50-5.90) M/uL Hgb 14.2 (13.0-17.0) g/dL Hct 40.8 (38.0-50.0) % MCV 99.8 H (80.0-98.0) fL MCH 34.7 H (27.0-32.0) pg MCHC 34.8 (31.0-37.0) g/dL RDW Std Deviation 50.1 (28.0-62.0) fl RDW Coeff of Shu 14 (11.0-15.0) % Plt Count 145 L (150-400) K/uL MPV 10.90 (7.40-12.00) fL Neut % (Auto) 78.6 (48.0-80.0) % Lymph % (Auto) 14.8 L (16.0-40.0) % [place] % (Auto) 6.0 (0.0-15.0) % Eos % (Auto) 0.5 (0.0-7.0) % Baso % (Auto) 0.1 (0.0-1.5) % Neut # (Auto) 8.4 H (1.4-5.7) K/uL Lymph # (Auto) 1.6 (0.6-2.4) K/uL [place] # (Auto) 0.6 (0.0-0.8) K/uL Eos # (Auto) 0.1 (0.0-0.7) K/uL Baso # (Auto) 0.0 (0.0-0.1) K/uL Nucleated RBC % 0.0 /100WBC Nucleated RBCs # 0 K/uL Sodium 135 L (136-148) mmol/L Potassium 3.7 (3.5-5.1) mmol/L Chloride 101 (98-107) mmol/L Carbon Dioxide 24.9 (21.0-32.0) mmol/L BUN 10 (7.0-18.0) mg/dL Creatinine 1.1 (0.8-1.3) mg/dL Est Cr Clr Drug Dosing 85.96 mL/min Estimated GFR (MDRD) > 60.0 ml/min Glucose 109 H (74-106) mg/dL Calcium 7.9 L (8.5-10.1) mg/dL Total Bilirubin 1.2 H (0.2-1.0) mg/dL AST 69 H (15-37) IU/L ALT 29 (14-63) IU/L Alkaline Phosphatase 70 (46-116) U/L Total Protein 6.3 L (6.4-8.2) g/dL Albumin 2.1 L (3.4-5.0) g/dL Globulin 4.2 H (2.6-4.0) g/dL Albumin/Globulin Ratio 0.5 L (0.9-1.6) Lipase 1188 H (73-393) U/L Med Orders - Current: Current Medications Enoxaparin Sodium (Lovenox) 40 mg SUBCUT Q24H [facility] Sodium Chloride (Normal Saline) 1,000 mls @ 125 mls/hr IV ASDIRECTED [facility] Last Admin: 06/13/18 03:11 Dose: 125 mls/hr Lorazepam (Ativan) 0.5 mg PO Q4H PRN PRN Reason: Withdrawal Symptoms Morphine Sulfate (Morphine) 2 mg IVPUSH Q2H PRN PRN Reason: Severe pain Last Admin: 06/13/18 06:56 Dose: 2 mg Ondansetron HCl (Zofran) 4 mg IVPUSH Q6H PRN PRN Reason: Nausea/Vomiting Temazepam (Restoril) 15 mg PO BEDTIME PRN PRN Reason: Sleep Discontinued Medications Enoxaparin Sodium (Lovenox) 30 mg SUBCUT Q24H [facility] Last Admin: 06/12/18 16:20 Dose: 30 mg Sodium Chloride (Normal Saline) 1,000 mls @ 999 mls/hr IV STAT ONE Stop: 06/11/18 11:49 Last Admin: 06/11/18 11:20 Dose: 999 mls/hr Influenza Virus Vaccine (Pharmacy To Dose - Influenza Vaccine) 1 each IM ONETIME ONE Stop: 06/11/18 15:36 Last Admin: 06/12/18 12:06 Dose: Not Given Influenza Virus Vaccine (Fluzone Quad [id number] Syringe) 60 mcg IM .ONCE ONE Stop: 06/11/18 15:46 Last Admin: 06/12/18 12:00 Dose: 60 mcg Iopamidol (Isovue Multipack-370 (76%)) 100 ml IVPUSH ONETIME STA Stop: 06/11/18 15:57 Last Admin: 06/11/18 15:56 Dose: 100 ml Ketorolac Tromethamine (Toradol) 30 mg IVPUSH ONETIME ONE Stop: 06/11/18 10:50 Last Admin: 06/11/18 11:21 Dose: 30 mg Lorazepam (Ativan) 0.5 mg PO TID [facility] Last Admin: 06/12/18 09:22 Dose: Not Given Morphine Sulfate (Morphine) 2 mg IVPUSH ONETIME ONE Stop: 06/11/18 13:23 Last Admin: 06/11/18 13:27 Dose: 2 mg Morphine Sulfate (Morphine) 2 mg IVPUSH Q2H PRN PRN Reason: Pain (severe 7-10) Stop: 06/12/18 16:05 Last Admin: 06/12/18 10:57 Dose: 2 mg Ondansetron HCl (Zofran) 4 mg IVPUSH ONETIME ONE Stop: 06/11/18 10:50 Last Admin: 06/11/18 11:22 Dose: 4 mg - Exam General: Reports: Alert, Oriented, Cooperative, No Acute Distress Lungs: Reports: Clear to Auscultation, Normal Respiratory Effort Cardiovascular: Reports: Regular Rate, Regular Rhythm, No Murmurs GI/Abdominal Exam: Normal Bowel Sounds, Soft, Non-Tender, Distended, Tender (LUQ / rib cage tenderness). No: Hepatomegaly, Splenomegaly Extremities: Normal Inspection, Normal Range of Motion, Non-Tender Neurological: Reports: No New Focal Deficit Psy/Mental Status: Reports: Alert, Normal Affect, Normal Mood. Denies: Withdrawal Symptoms <Gerald Georges Last Filed: 06/13/18 11:37> Discharge Summary - Hospital Course HPI Initial Comments: I have examined the patient independently of Dian Hill CNP and have discussed the case with her. I have reviewed and agree with the findings and plan of care as outlined for this patient. Please see orders. - Discharge Diagnosis/Problem(s) (1) Pancreatitis SNOMED Code(s): 51325332 ICD Code: K85.90 - ACUTE PANCREATITIS WITHOUT NECROSIS OR INFECTION, UNSP Status: Acute Priority: High Current Visit: Yes Problem Details: Improving Qualifiers: Chronicity: acute Pancreatitis type: alcohol induced Acute pancreatitis complication: unspecified Qualified Code(s): K85.20 - Alcohol induced acute pancreatitis without necrosis or infection (2) Abdominal pain SNOMED Code(s): 27159913 ICD Code: R10.9 - UNSPECIFIED ABDOMINAL PAIN Status: Acute Priority: High Current Visit: Yes Qualifiers: Abdominal location: epigastric Qualified Code(s): R10.13 - Epigastric pain (3) Alcohol abuse SNOMED Code(s): 64664422 ICD Code: F10.10 - ALCOHOL ABUSE, UNCOMPLICATED Status: Chronic Priority : High Current Visit: Yes - Patient Data Vitals - Most Recent: Last Vital Signs Temp 36.3 C 06/13/18 11:21 Pulse 99 06/13/18 11:21 Resp 19 06/13/18 11:21 BP 118/80 06/13/18 11:21 Pulse Ox 94 L 06/13/18 11:21 I&O - Last 24 hours: Intake & Output 06/12/18 06/13/18 06/13/18 22:59 06:59 14:59 Intake Total 1999 1979 Output Total 1050 400 Balance 950 1580 Lab Results - Last 24 hrs: Laboratory Results - last 24 hr 06/13/18 06/13/18 Range/Units 05:29 05:29 WBC 10.67 (4.0-11.0) K/uL RBC 4.09 L (4.50-5.90) M/uL Hgb 14.2 (13.0-17.0) g/dL Hct 40.8 (38.0-50.0) % MCV 99.8 H (80.0-98.0) fL MCH 34.7 H (27.0-32.0) pg MCHC 34.8 (31.0-37.0) g/dL RDW Std Deviation 50.1 (28.0-62.0) fl RDW Coeff of Shu 14 (11.0-15.0) % Plt Count 145 L (150-400) K/uL MPV 10.90 (7.40-12.00) fL Neut % (Auto) 78.6 (48.0-80.0) % Lymph % (Auto) 14.8 L (16.0-40.0) % [place] % (Auto) 6.0 (0.0-15.0) % Eos % (Auto) 0.5 (0.0-7.0) % Baso % (Auto) 0.1 (0.0-1.5) % Neut # (Auto) 8.4 H (1.4-5.7) K/uL Lymph # (Auto) 1.6 (0.6-2.4) K/uL [place] # (Auto) 0.6 (0.0-0.8) K/uL Eos # (Auto) 0.1 (0.0-0.7) K/uL Baso # (Auto) 0.0 (0.0-0.1) K/uL Nucleated RBC % 0.0 /100WBC Nucleated RBCs # 0 K/uL Sodium 135 L (136-148) mmol/L Potassium 3.7 (3.5-5.1) mmol/L Chloride 101 (98-107) mmol/L Carbon Dioxide 24.9 (21.0-32.0) mmol/L BUN 10 (7.0-18.0) mg/dL Creatinine 1.1 (0.8-1.3) mg/dL Est Cr Clr Drug Dosing 85.96 mL/min Estimated GFR (MDRD) > 60.0 ml/min Glucose 109 H (74-106) mg/dL Calcium 7.9 L (8.5-10.1) mg/dL Total Bilirubin 1.2 H (0.2-1.0) mg/dL AST 69 H (15-37) IU/L ALT 29 (14-63) IU/L Alkaline Phosphatase 70 (46-116) U/L Total Protein 6.3 L (6.4-8.2) g/dL Albumin 2.1 L (3.4-5.0) g/dL Globulin 4.2 H (2.6-4.0) g/dL Albumin/Globulin Ratio 0.5 L (0.9-1.6) Lipase 1188 H (73-393) U/L Med Orders - Current: Current Medications Docusate Sodium (Colace) 100 mg PO DAILY [facility] Last Admin: 06/13/18 09:59 Dose: 100 mg Enoxaparin Sodium (Lovenox) 40 mg SUBCUT Q24H [facility] Sodium Chloride (Normal Saline) 1,000 mls @ 125 mls/hr IV ASDIRECTED [facility] Last Admin: 06/13/18 03:11 Dose: 125 mls/hr Lorazepam (Ativan) 0.5 mg PO Q4H PRN PRN Reason: Withdrawal Symptoms Ondansetron HCl (Zofran) 4 mg IVPUSH Q6H PRN PRN Reason: Nausea/Vomiting Pantoprazole Sodium (Protonix) 40 mg PO ACBREAKFAST [facility] Last Admin: 06/13/18 09:59 Dose: 40 mg Temazepam (Restoril) 15 mg PO BEDTIME PRN PRN Reason: Sleep Discontinued Medications Enoxaparin Sodium (Lovenox) 30 mg SUBCUT Q24H [facility] Last Admin: 06/12/18 16:20 Dose: 30 mg Sodium Chloride (Normal Saline) 1,000 mls @ 999 mls/hr IV STAT ONE Stop: 06/11/18 11:49 Last Admin: 06/11/18 11:20 Dose: 999 mls/hr Influenza Virus Vaccine (Pharmacy To Dose - Influenza Vaccine) 1 each IM ONETIME ONE Stop: 06/11/18 15:36 Last Admin: 06/12/18 12:06 Dose: Not Given Influenza Virus Vaccine (Fluzone Quad [id number] Syringe) 60 mcg IM .ONCE ONE Stop: 06/11/18 15:46 Last Admin: 06/12/18 12:00 Dose: 60 mcg Iopamidol (Isovue Multipack-370 (76%)) 100 ml IVPUSH ONETIME STA Stop: 06/11/18 15:57 Last Admin: 06/11/18 15:56 Dose: 100 ml Ketorolac Tromethamine (Toradol) 30 mg IVPUSH ONETIME ONE Stop: 06/11/18 10:50 Last Admin: 06/11/18 11:21 Dose: 30 mg Lorazepam (Ativan) 0.5 mg PO TID NABIL Last Admin: 06/12/18 09:22 Dose: Not Given Morphine Sulfate (Morphine) 2 mg IVPUSH ONETIME ONE Stop: 06/11/18 13:23 Last Admin: 06/11/18 13:27 Dose: 2 mg Morphine Sulfate (Morphine) 2 mg IVPUSH Q2H PRN PRN Reason: Pain (severe 7-10) Stop: 06/12/18 16:05 Last Admin: 06/12/18 10:57 Dose: 2 mg Morphine Sulfate (Morphine) 2 mg IVPUSH Q2H PRN PRN Reason: Severe pain Last Admin: 06/13/18 06:56 Dose: 2 mg Ondansetron HCl (Zofran) 4 mg IVPUSH ONETIME ONE Stop: 06/11/18 10:50 Last Admin: 06/11/18 11:22 Dose: 4 mg
[2018-06-13] MEDS ORDERED: Docusate Sodium 100 MG Cap PO SCH (09:15)
[2018-06-13] MEDS ORDERED: Enoxaparin 40 MG/0.4 ML Syringe SUBCUT SCH (17:00)
== END 2018-06-13 11:30 | disposition home or self-care (01) ==
LOC: MW.ED 10:05 → MW.MS 14:35
PROVIDERS: ADMIT Internal Medicine; ATTEND Internal Medicine
DX: K85.20 Alcohol induced acute pancreatitis without necrosis or infection (principal); F10.10 Alcohol abuse, uncomplicated; Z23 Encounter for immunization
CPT/HCPCS: 36415; 74177; 80048; 80053; 81001; 83615; 83690; 85025; 86677; 90686; 96361; 96374; 96375; 99285; A9270; J1650; J1885; J2270; J2405; J7040; Q9967; 96372; 96376; 99284; G0378